=== PATIENT | female | born 1990 | race Caucasian/White ===

== ENCOUNTER 2017-10-03 14:45 | Inpatient (IN) | payer BC ==
[2017-10-03] MEDS ORDERED: DEXTROSE 5%-LACTATED RINGERS 1,000 ML IV SCH (15:35)
[2017-10-03] MEDS ORDERED: AMPICILLIN - 2 GM in SODIUM CHLORIDE 100 ML IVPB ONE ×2 (15:45→18:15)
[2017-10-03] MEDS ORDERED: AMPICILLIN SODIUM 2 GM VIAL ONE (15:45)
[2017-10-03] MEDS ORDERED: SODIUM CHLORIDE 100 ML IVPB ONE ×2 (15:45→19:49)
[2017-10-03] MEDS ORDERED: AMPICILLIN - 1 GM in SODIUM CHLORIDE 100 ML IVPB ONE (15:45)
[2017-10-03 16:36] LABS: BASO % 0.5 % (0-2.0); EOS % 1.2 % (0-4.5); HEMATOCRIT 35.7 % (32.4-45.2); HEMOGLOBIN 12.1 GM/dL (10.7-15.3); LYMPH % 14.1 % (8-40); MCH 31.7 pg (25.7-33.7); MEAN CELL VOLUME 93.4 fl (80-96); MONO % 7.5 % (3.8-10.2); NEUT % 76.7 % (42.8-82.8); RBC 3.82 M/mm3 (3.60-5.2); RDW 13.7 % (11.6-15.6)
[2017-10-03 16:53] VITALS: BMI 31.8
[2017-10-03 17:00] LABS: ALBUMIN 2.9 g/dl (3.4-5.0); ANION GAP 9 (8-16); BLOOD UREA NITROGEN 7 mg/dL (7-18); CALCIUM 8.6 mg/dL (8.5-10.1); CHLORIDE 107 mmol/L (98-107); CO2 24 mmol/L (21-32); CREATININE 0.7 mg/dL (0.55-1.02); GLUCOSE,RANDOM 79 mg/dL (74-106); SGOT/AST 16 U/L (15-37); SGPT/ALT 15 U/L (12-78); SODIUM 140 mmol/L (136-145)
[2017-10-03 17:02] LABS: ALK PHOS 130 U/L (45-117); BILIRUBIN,TOTAL 0.4 mg/dL (0.2-1.0); TOT PROT 6.3 g/dl (6.4-8.2)
[2017-10-03 17:15] LABS: PLATELET ESTIMATE ADEQUATE
[2017-10-03 17:42] LABS: URINE APPEARANCE SLCLOUDY; URINE BILIRUBIN NEGATIVE (<2.0 mg/dL); URINE COLOR YELLOW; URINE GLUCOSE (UA) NEGATIVE (NEGATIVE); URINE KETONE NEGATIVE (NEGATIVE); URINE LEUK ESTERASE NEGATIVE (NEGATIVE); URINE NITRITE NEGATIVE (NEGATIVE); URINE PROTEIN NEGATIVE (NEGATIVE); URINE UROBILINOGEN NEGATIVE mg/dL (0.2-1.0)
[2017-10-03 17:57] LABS: COCAINE, UR NEGATIVE ng/ml (CUTOFF=300); URINE AMPHETAMINES NEGATIVE ng/ml (CUTOFF=500); URINE BARBITURATES NEGATIVE ng/ml (CUTOFF=200); URINE BENZODIAZEPINES NEGATIVE ng/ml (CUTOFF=200)
[2017-10-03 17:58] LABS: METHADONE, UR NEGATIVE ng/ml (CUTOFF=300); OPIATES, URI NEGATIVE ng/ml (CUTOFF=300); PHENCYCLIDINE,URINE NEGATIVE ng/ml (CUTOFF=25)
[2017-10-03 18:04] LABS: EPI CELLS RARE /HPF (FEW); URINE MUCUS RARE
[2017-10-03 18:10] LABS: INR 0.88 (0.82-1.09)
[2017-10-03] MEDS ORDERED: TUBERCULIN PPD 5 TU/0.1ML SYRINGE (IN PATIENT USE ONLY) ID ONE (18:30)
[2017-10-03] MEDS: AMPICILLIN - 1 GM in SODIUM CHLORIDE 100 ML IVPB SCH (19:45)
[2017-10-03] MEDS ORDERED: AMPICILLIN SODIUM 1 GM VIAL ONE (19:48)
--- NOTE | 2017-10-03 20:44 | HP ---
Past Medical History - Admission Chief Complaint: leaking fluid History of Present Illness: 27 y/o with SIUP at 39.3 weeks gestation here with complaints of leaking fluid since 9:30 a.m. Denies any contractions. GBS unknown. uncomplicated per patient. No other complaints/concerns. History Source: Patient Limitations to Obtaining History: No Limitations - Past Medical History Cardiovascular: No: HTN Pulmonary: Yes: Asthma (no meds) Gastrointestinal: No: GERD Hepatobiliary: No: Hepatitis B, Hepatitis C Reproductive: No: Fibroids, PID, Polycystic Ovary Syndrome ...: 1 ...Para: 0 ...Term: 0 ...: 0 ...Spon : 0 ...Induced : 0 ...Multiple Gestation: 0 ...LMP: 12/31/16 ... Weeks Gestation by Dates: 39.3 ...EDC by Dates: 10/07/17 Heme/Onc: No: Anemia Infectious Disease: No: MRSA, STD's Psych: No: Anxiety, Bipolar, Depression - Past Surgical History Past Surgical History: Yes: None Hx Myomectomy: No Hx Transabdominal Cerclage: No - Smoking History Smoking history: Never smoked Have you smoked in the past 12 months: No - Alcohol/Substance Use Hx Alcohol Use: No History of Substance Use: reports: None - Social History Usual Living Arrangement: Yes: With Spouse ADL: Independent History of Recent Travel: No Home Medications - Allergies Allergies/Adverse Reactions: Allergies Allergy/AdvReac Type Severity Reaction Status Date / Time aspirin Allergy Severe Hives Verified 10/03/17 15:48 - Home Medications Home Medications: Ambulatory Orders Vit No.130/Iron/Folic [ Vitamins] 1 each PO DAILY 10/03/17 Review of Systems - Review of Systems Constitutional: reports: No Symptoms Eyes: reports: No Symptoms HENT: reports: No Symptoms Neck: reports: No Symptoms Cardiovascular: reports: No Symptoms Respiratory: reports: No Symptoms Gastrointestinal: reports: No Symptoms Genitourinary: reports: Other (leaking fluid vaginally) Musculoskeletal: reports: No Symptoms Integumentary: reports: No Symptoms Endocrine: reports: No Symptoms Hematology/Lymphatic: reports: No Symptoms Psychiatric: reports: No Symptoms Physical Exam - Maternity Vital Signs: Vital Signs Temperature 98.2 F 10/03/17 20:00 Pulse Rate 84 10/03/17 20:00 Respiratory Rate 20 10/03/17 20:00 Blood Pressure 125/72 10/03/17 20:00 O2 Sat by Pulse Oximetry (%) Constitutional: Yes: Well Nourished, No Distress, Calm HENT: Yes: Atraumatic, Normocephalic Neck: Yes: Supple, Trachea Midline - Abdominal Exam/OB Fundal Height: 39 Number of Fetuses: Single Presentation: Vertex Contractions: No Heart Rate (range): 145 Accelerations: Uniform Decelerations: None - Vaginal Exam/OB Vaginal Bleediing: No Dilatation (cm): 1 Effacement (%): 50 Amniotic Membrane Status: Ruptured Nitrazine Test: Positive Amniotic Fluid: Yes: Clear Presentation: Vertex/Position Station: -2 - Physical Exam Psychiatric: Yes: Alert, Oriented - Labs Lab Results: CBC, BMP 10/03/17 14:15 10/03/17 14:15 Hemorrhage Risk Assessment - Risk Factors Medium Risk Factors: Yes: None High Risk Factors: Yes: None Risk Score: 1 Risk Level: Medium Risk Problem List - Problems (1) Premature rupture of membranes Code(s): O42.90 - NILAY ROM, 7TH0 BETW RUPT & ONST LABR, UNSP WEEKS OF GEST (2) Premature rupture of membranes (PROM) affecting first Code(s): O42.90 - NILAY ROM, 7TH0 BETW RUPT & ONST LABR, UNSP WEEKS OF GEST (3) Term Code(s): Z34.80 - ENCOUNTER FOR SUPRVSN OF NORMAL , UNSP TRIMESTER Assessment/Plan 27 y/o with SIUP at 39.3 weeks here with PROM AFVSS FHTs cat 1 for IOL, cervidil placed at this time - for re evaluation in a.m. GBS unknown - on antibiotics per hospital protocol
[2017-10-03] MEDS ORDERED: PROMETHAZINE HCL 25 MG/1 ML VIAL IVPUSH ONE (21:00)
[2017-10-03] MEDS ORDERED: DINOPROSTONE 10 MG VAGINAL SUPPOSITORY VG ONE (21:00)
[2017-10-03] MEDS ORDERED: BUTORPHANOL TARTRATE 1 MG/ML VIAL IVPB ONE (21:00)
[2017-10-04] MEDS ORDERED: BUTORPHANOL TARTRATE 1 MG/ML VIAL ONE ×2 (02:44)
[2017-10-04] MEDS ORDERED: AMPICILLIN SODIUM 1 GM VIAL ONE ×4 (02:45→15:16)
[2017-10-04] MEDS ORDERED: SODIUM CHLORIDE 100 ML IVPB ONE (02:45)
[2017-10-04] MEDS ORDERED: PROMETHAZINE HCL 25 MG/1 ML VIAL ONE (02:45)
[2017-10-04] MEDS: AMPICILLIN - 1 GM in SODIUM CHLORIDE 100 ML IVPB SCH ×6 (03:00→21:09)
[2017-10-04] MEDS ORDERED: FENTANYL/BUPIVACAINE/NS/PF - PCEA - 50 ML DISP.SYRIN EP ONE ×2 (07:49→12:27)
--- NOTE | 2017-10-04 07:49 | PN ---
Ante-Partal Exam - Subjective Subjective: Pt having pain with contractions, desires epidural. Vital Signs: Vital Signs Temperature 98.2 F 10/04/17 06:00 Pulse Rate 92 H 10/04/17 06:00 Respiratory Rate 20 10/04/17 06:00 Blood Pressure 139/79 10/04/17 06:00 O2 Sat by Pulse Oximetry (%) Bleeding: No Headache: No Visual changes: No Right upper quadrant pain: No Pain (scale 1-10): 8 - Contractions Contractions: Yes Regularity: Regular Intensity: Strong Monitor Mode: External - Exam during Labor Heart Rate: 140 Variability: Moderate Category: I Monitor Accelerations: Present Monitor Decelerations: None Exam: Vaginal Dilatation (cm): 4.5 Effacement (%): 90 Amniotic Membrane Status: Ruptured Nitrazine Test: Positive Amniotic Fluid: Clear Presentation: Vertex Station: -2 - Assessment/Plan Assessment/Plan: 27 y/o with SIUP at 39.4 weeks, PROM, IOL - AFVSS - FHTs cat 1 - cervidil removed, for epidural - GBS negative - continue current management
[2017-10-04] MEDS ORDERED: LIDO 2%/EPI 1:200000 PRESRVFRE (20 ML SDVIAL) ONE (07:54)
[2017-10-04] MEDS ORDERED: BUPIVACAINE HCL/PF 0.25% (2.5MG/ML) 10 ML VIAL ONE ×2 (07:54→07:55)
[2017-10-04] MEDS ORDERED: ELECTROLYTE-148 SOLN 500 ML IV ONE (08:00)
[2017-10-04] MEDS ORDERED: NALOXONE HCL 0.4 MG/ML VIAL IVPUSH PRN (08:23)
[2017-10-04] MEDS ORDERED: FENTANYL/BUPIVACAINE/NS/PF - PCEA - 50 ML DISP.SYRIN EP SCH (08:30)
[2017-10-04 09:35] LABS: RPR NONREACTIVE (NONREACTIVE)
[2017-10-04] MEDS: OXYTOCIN 30 UNITS in 0.9% NS 30 UNIT/500 ML INFUS.BAG IVPB SCH (13:50)
[2017-10-04] MEDS ORDERED: LIDOCAINE HCL 1% PRESERVATIVE FREE - 30ML VIAL ONE (15:02)
[2017-10-04] MEDS: OXYTOCIN 20 UNITS in 0.9% NS 20 UNIT/1,000 ML INFUS.BAG IV SCH (15:42)
[2017-10-04] MEDS ORDERED: METHYLERGONOVINE MALEATE 0.2 MG/1 ML AMP IM PRN (16:01)
[2017-10-04] MEDS ORDERED: ACETAMINOPHEN 325 MG TABLET (FP) PO PRN (16:01)
[2017-10-04] MEDS ORDERED: WITCH HAZEL 50% (TUCKS) 40 PAD/JAR PAD TP PRN (16:01)
[2017-10-04] MEDS ORDERED: BENZOCAINE 20% 57 GM BOTTLE TP PRN (16:01)
[2017-10-04] MEDS ORDERED: BISACODYL 10 MG SUPP.RECT RC PRN (16:01)
[2017-10-04] MEDS ORDERED: BENZOCAINE 28 GM HEMORRHOIDAL OINTMENT TP PRN (16:01)
[2017-10-04] MEDS ORDERED: OXYTOCIN 20 UNITS in 0.9% NS 20 UNIT/1,000 ML INFUS.BAG IV SCH (16:15)
--- NOTE | 2017-10-04 16:20 | PN ---
Ante-Partal Exam - Subjective Vital Signs: Vital Signs Temperature 98.8 F 10/04/17 14:00 Pulse Rate 75 10/04/17 14:00 Respiratory Rate 18 10/04/17 14:00 Blood Pressure 124/66 10/04/17 14:00 O2 Sat by Pulse Oximetry (%) 98 10/04/17 14:00 Bleeding: No Bleeding Description: Mild Headache: No Visual changes: No Right upper quadrant pain: No - Contractions Contractions: Yes Regularity: Regular Intensity: Moderate Monitor Mode: External - Exam during Labor Heart Rate: 14 Variability: Moderate Heart Rate Location: [facility] Category: I Monitor Accelerations: Present Monitor Decelerations: None Exam: Vaginal Dilatation (cm): comple Effacement (%): complete Amniotic Membrane Status: Ruptured Amniotic Fluid: Clear Presentation: Vertex Station: +1 - Intrapartum Hemorrhage Risk Medium Risk Factors: None High Risk Factors: None Risk Score: 0 Risk Level: Low Risk
--- NOTE | 2017-10-04 16:26 | PN ---
Delivery - Delivery Vaginal Delivery: Spontaneous Type of Anesthesia: None Episiotomy/Laceration: Vaginal Extension/lac, 2nd degree EBL (cc): 200 Delivery, Single - Feeding Plan Initial Plan: Exclusive throughout hospitalization Remarks - Remarks Remarks: normal spontaneous vaginal delivery of living male infant a tight nuchal cord was clamped and cut over the perineum the cried spontaneously ,following the delivery of the the placenta was expelled completely and spontaneously,Both materna and condition remained stable.
[2017-10-04] MEDS: FERROUS SO4 325 MG TABLET (FP) PO SCH (17:30)
[2017-10-05] MEDS: AMPICILLIN - 1 GM in SODIUM CHLORIDE 100 ML IVPB SCH ×2 (00:20→08:30)
[2017-10-05 06:06] LABS: HBsAG SCREEN Negative (Negative)
--- NOTE | 2017-10-05 07:01 | PN ---
Post Note - Post Date of Delivery: 10/04/17 Vital Signs: Vital Signs - 24 hr 10/04/17 10/04/17 10/04/17 08:00 08:15 08:20 Temperature 98.2 F 98.2 F Pulse Rate 76 82 85 Respiratory 18 18 18 Rate Blood Pressure 141/82 113/63 114/68 O2 Sat by Pulse 99 99 Oximetry (%) 10/04/17 10/04/17 10/04/17 08:25 08:30 08:45 Temperature Pulse Rate 80 72 90 Respiratory 18 18 18 Rate Blood Pressure 120/70 109/63 118/69 O2 Sat by Pulse 99 98 99 Oximetry (%) 10/04/17 10/04/17 10/04/17 09:00 09:15 09:30 Temperature 98.0 F Pulse Rate 78 74 79 Respiratory 18 18 18 Rate Blood Pressure 111/68 101/61 106/66 O2 Sat by Pulse 97 97 99 Oximetry (%) 10/04/17 10/04/17 10/04/17 09:45 10:00 10:15 Temperature 98.3 F Pulse Rate 82 86 80 Respiratory 18 18 18 Rate Blood Pressure 120/71 133/72 124/109 O2 Sat by Pulse 100 100 100 Oximetry (%) 10/04/17 10/04/17 10/04/17 10:30 10:45 11:00 Temperature 98.4 F Pulse Rate 79 76 77 Respiratory 18 18 18 Rate Blood Pressure 128/70 119/64 128/65 O2 Sat by Pulse 100 100 100 Oximetry (%) 10/04/17 10/04/17 10/04/17 11:15 11:30 11:45 Temperature Pulse Rate 93 H 92 H 84 Respiratory 18 18 18 Rate Blood Pressure 114/62 112/71 115/68 O2 Sat by Pulse 99 100 97 Oximetry (%) 10/04/17 10/04/17 10/04/17 12:00 12:15 12:30 Temperature 98.5 F Pulse Rate 80 82 82 Respiratory 18 18 18 Rate Blood Pressure 116/70 116/66 112/69 O2 Sat by Pulse 97 97 96 Oximetry (%) 10/04/17 10/04/17 10/04/17 12:45 13:00 13:15 Temperature 98.4 F Pulse Rate 77 78 83 Respiratory 18 18 18 Rate Blood Pressure 116/67 118/69 120/76 O2 Sat by Pulse 97 97 98 Oximetry (%) 10/04/17 10/04/17 10/04/17 13:30 13:45 14:00 Temperature 98.8 F Pulse Rate 73 76 75 Respiratory 18 18 18 Rate Blood Pressure 123/71 118/68 124/66 O2 Sat by Pulse 98 97 98 Oximetry (%) 10/04/17 10/04/17 10/04/17 14:15 14:30 14:45 Temperature Pulse Rate 75 83 97 H Respiratory 18 18 18 Rate Blood Pressure 117/68 120/73 126/76 O2 Sat by Pulse 98 98 100 Oximetry (%) 10/04/17 10/04/17 10/04/17 15:00 15:15 15:30 Temperature 98.4 F Pulse Rate 83 83 111 H Respiratory 18 18 18 Rate Blood Pressure 133/68 121/71 147/79 O2 Sat by Pulse 100 100 100 Oximetry (%) 10/04/17 10/04/17 10/04/17 16:00 16:15 16:30 Temperature Pulse Rate 95 H 90 96 H Respiratory 18 18 18 Rate Blood Pressure 131/68 131/69 122/71 O2 Sat by Pulse 100 100 100 Oximetry (%) 10/04/17 10/04/17 10/04/17 16:45 17:00 17:15 Temperature 98.5 F 98.2 F Pulse Rate 93 H 96 H 99 H Respiratory 18 18 18 Rate Blood Pressure 123/66 130/72 122/71 O2 Sat by Pulse 100 100 100 Oximetry (%) 10/04/17 10/04/17 10/04/17 17:49 18:00 22:00 Temperature 98.6 F 97.8 F Pulse Rate 101 H 94 H Respiratory 20 20 Rate Blood Pressure 132/69 127/67 O2 Sat by Pulse 100 Oximetry (%) 10/05/17 04:00 Temperature 98.1 F Pulse Rate 87 Respiratory 20 Rate Blood Pressure 141/90 O2 Sat by Pulse Oximetry (%) Labs: Laboratory Results - last 24 hr 10/03/17 10/03/17 14:15 14:15 RPR Titer Nonreactive Hep Bs Antigen Negative - Subjective Subjective: No Complaints - Objective Breast: Not engorged Abdomen: Soft, Non-tender Uterus: Fundus firm Vagina: Scant lochia Extremities: Non-tender - Assessment/Plan (1) (normal spontaneous vaginal delivery) Assessment: S/P Normal Plan: Routine Care
[2017-10-05 08:07] LABS: RUBELLA IgG ANTIBODY 6.29 index (Immune >0.99)
[2017-10-05] MEDS: FERROUS SO4 325 MG TABLET (FP) PO SCH ×2 (09:00→17:54)
[2017-10-05 09:01] LABS: BASO % 0.5 % (0-2.0); HEMATOCRIT 32.9 % (32.4-45.2); HEMOGLOBIN 11.3 GM/dL (10.7-15.3); LYMPH % 12.8 % (8-40); MCH 32.1 pg (25.7-33.7); MCHC 34.3 g/dl (32.0-36.0); MEAN CELL VOLUME 93.4 fl (80-96); MEAN PLT VOLUME 9.6 fl (7.5-11.1); MONO % 7.2 % (3.8-10.2); NEUT % 78.5 % (42.8-82.8); PLATELET COUNT 113 K/MM3 (134-434); RBC 3.52 M/mm3 (3.60-5.2); WHITE BLOOD COUNT 10.8 K/mm3 (4.0-10.0)
[2017-10-05] MEDS: PRENATAL VITAMINS W/ FOLIC ACID TABLET (FP) PO SCH (09:10)
[2017-10-05] MEDS: OXYTOCIN 30 UNITS in 0.9% NS 30 UNIT/500 ML INFUS.BAG IVPB SCH (16:15)
[2017-10-05] MEDS: OXYTOCIN 20 UNITS in 0.9% NS 20 UNIT/1,000 ML INFUS.BAG IV SCH (18:30)
[2017-10-05] MEDS ORDERED: SENNOSIDES/DOCUSATE COMBO (SENNA PLUS) TABLET (UD) PO PRN (22:00)
--- NOTE | 2017-10-06 06:44 | PN ---
Post Progress Note Post Day: 2 Type of Delivery: Vital Signs: Vital Signs Temperature 98 F 10/05/17 22:00 Pulse Rate 83 10/05/17 22:00 Respiratory Rate 18 10/05/17 22:00 Blood Pressure 131/75 10/05/17 22:00 O2 Sat by Pulse Oximetry (%) 100 10/04/17 17:49 Breast Exam: Yes: Soft Uterus: Yes: Fundus Firm, Fundus below umbilicus Abdomen/GI: Yes: Abdomen soft, Passing flatus Lochia: Yes: Serosa Lochia, amount: Moderate Extremities: Yes: Calves non-tender Perineum: Yes: Laceration Activity: Ambulating - Labs Labs: CBC WBC 10.8 K/mm3 (4.0-10.0) H 10/05/17 08:40 RBC 3.52 M/mm3 (3.60-5.2) L 10/05/17 08:40 Hgb 11.3 GM/dL (10.7-15.3) 10/05/17 08:40 Hct 32.9 % (32.4-45.2) 10/05/17 08:40 MCV 93.4 fl (80-96) 10/05/17 08:40 MCH 32.1 pg (25.7-33.7) 10/05/17 08:40 MCHC 34.3 g/dl (32.0-36.0) 10/05/17 08:40 RDW 14.0 % (11.6-15.6) 10/05/17 08:40 Plt Count 113 K/MM3 (134-434) L 10/05/17 08:40 MPV 9.6 fl (7.5-11.1) 10/05/17 08:40 Neutrophils % 78.5 % (42.8-82.8) 10/05/17 08:40 Lymphocytes % 12.8 % (8-40) 10/05/17 08:40 Monocytes % 7.2 % (3.8-10.2) 10/05/17 08:40 Eosinophils % 1.0 % (0-4.5) 10/05/17 08:40 Basophils % 0.5 % (0-2.0) 10/05/17 08:40 Nucleated RBC % 0 % (0-0) 10/05/17 08:40 Platelet Estimate Adequate 10/03/17 14:15 Platelet Comment 10/03/17 14:15 Assessment/Plan s/p normal spontaneous vaginal delivery condition is stable plan to discharge home today f/u in 6 weeks continue vitamins pain management as needed.
[2017-10-06] MEDS: FERROUS SO4 325 MG TABLET (FP) PO SCH (09:00)
[2017-10-06 09:06] VITALS: BP 134/80; PULSE 68; TEMP 98.2
[2017-10-06] MEDS: PRENATAL VITAMINS W/ FOLIC ACID TABLET (FP) PO SCH (09:45)
== END 2017-10-06 12:45 | disposition home or self-care (01) | DRG 775 ==
LOC: JLDR 14:45 → J3W 10-04 18:00
PROVIDERS: ADMIT Obstetrics & Gynecology; ATTEND Obstetrics & Gynecology
PROC: 10E0XZZ Delivery of Products of Conception, External Approach (ICD-10-PCS; principal; 2017-10-04)
PROC: 0KQM0ZZ Repair Perineum Muscle, Open Approach (ICD-10-PCS; 2017-10-04)
DX: O42.02 Full-term premature rupture of membranes, onset of labor within 24 hours of rupture (principal); O69.1XX0 Labor and delivery complicated by cord around neck, with compression, not applicable or unspecified; Z37.0 Single live birth; O70.1 Second degree perineal laceration during delivery; O26.893 Other specified pregnancy related conditions, third trimester; J45.909 Unspecified asthma, uncomplicated; Z3A.39 39 weeks gestation of pregnancy
CPT/HCPCS: 36415; 59409; 80053; 80307; 81003; 81015; 85025; 85610; 85730; 86593; 86762; 86850; 86900; 86901; 87340; 87389